=== PATIENT | female | born 1975 | race African-American/Black ===

== ENCOUNTER 2020-11-30 09:21 | Outpatient (CLI) | payer OTHER ==
[2020-11-30 16:44] LABS: SARS-CoV-2 PCR by NAA Not Detected (NotDetected)
== END 2020-11-30 09:22 | disposition home or self-care (01) ==
LOC: CSHLAB 09:21
PROVIDERS: ATTEND Physician Assistant Medical
DX: Z20.822 Contact with and (suspected) exposure to COVID-19 (principal); K52.9 Noninfective gastroenteritis and colitis, unspecified; R13.10 Dysphagia, unspecified
CPT/HCPCS: 87635; U0003; U0005

== ENCOUNTER 2022-06-05 08:41 | Outpatient (CLI) | payer OTHER | END 2022-06-05 08:42 | disposition home or self-care (01) | LOC: CSHMRI 08:41 | PROVIDERS: ATTEND Nurse Practitioner Gerontology | DX: M54.12 Radiculopathy, cervical region (principal); M47.812 Spondylosis without myelopathy or radiculopathy, cervical region | CPT/HCPCS: 72141 ==

== ENCOUNTER 2024-06-29 10:44 | Emergency (ER) | payer OTHER ==
[2024-06-29] MEDS ORDERED: HYDROcodone/Acetaminophen 5/325 mg Tablet ONE (11:36)
== END 2024-06-29 13:30 | disposition home or self-care (01) ==
LOC: CSHERS 10:44
DX: S80.01XA Contusion of right knee, initial encounter (principal); M25.512 Pain in left shoulder; I10 Essential (primary) hypertension; Z90.49 Acquired absence of other specified parts of digestive tract; W19.XXXA Unspecified fall, initial encounter
CPT/HCPCS: 99283

== ENCOUNTER 2025-03-04 08:21 | Emergency (ER) | payer OTHER ==
[2025-03-04] MEDS ORDERED: Ibuprofen 800 MG TAB ONE (08:44)
== END 2025-03-04 09:24 | disposition home or self-care (01) ==
LOC: CSHERS 08:21
DX: M25.552 Pain in left hip (principal); I10 Essential (primary) hypertension; J45.909 Unspecified asthma, uncomplicated; V89.2XXA Person injured in unspecified motor-vehicle accident, traffic, initial encounter
CPT/HCPCS: 72100; 99284